=== PATIENT | male | born 1985 | race African-American/Black ===

== ENCOUNTER 2019-04-07 13:28 | Emergency (ER) | payer SELFPAY ==
[~2019-04-07] VITALS: Ht 175.3 cm; Wt 80.2 kg
[2019-04-07 13:30] VITALS: BP 120/53
[2019-04-07] MEDS ORDERED: DIPH,PERTUSS(ACELL),TET VAC/PF 0.5 ML IM-VACC ONE ×2 (13:48→14:00)
== END 2019-04-07 14:43 | disposition home or self-care (01) ==
LOC: ED 14:30
DX: S61.235A Puncture wound without foreign body of left ring finger without damage to nail, initial encounter (principal); F17.200 Nicotine dependence, unspecified, uncomplicated; X58.XXXA Exposure to other specified factors, initial encounter; Y93.89 Activity, other specified; Y92.69 Other specified industrial and construction area as the place of occurrence of the external cause; Y99.8 Other external cause status
CPT/HCPCS: 90471; 90715

== ENCOUNTER 2019-11-24 13:22 | Emergency (ER) | payer MEDICAID | END 2019-11-24 14:09 | LOC: ED 14:03 | DX: F41.9 Anxiety disorder, unspecified (principal); Z53.21 Procedure and treatment not carried out due to patient leaving prior to being seen by health care provider ==

== ENCOUNTER 2019-12-30 11:31 | Emergency (ER) | payer MEDICAID ==
[~2019-12-30] VITALS: Ht 175.3 cm; Wt 78.4 kg
[2019-12-30 11:43] VITALS: BP 115/67
[2019-12-30] MEDS ORDERED: LIDOCAINE-MPF 1%, 5ML ONE (11:55)
[2019-12-30] MEDS ORDERED: LIDOCAINE 1%, 10ML INFIL ONE (12:00)
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
--- NOTE | 2019-12-30 12:09 | NUR ---
XR DONE AT .
[2019-12-30] MEDS ORDERED: NEOSPORIN OINT. PKT 1 PACKET ONE ×2 (13:11)
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
[2019-12-30] MEDS ORDERED: IBUPROFEN 800 MG TABLET ONE (13:37)
--- NOTE | 2019-12-30 13:53 | NUR ---
BANDANGE AND ALUMINUM FINGER SPLINT APPLIED BY GLASS GRINDER. INSTRUCTED PT ON WOUND CARE.
--- NOTE | 2019-12-30 13:54 | NUR ---
D/C INSTRUCTIONS, MEDS & F/U APPT RV'WD WITH PT, HE VERBALIZES UNDERSTANDING. RX GIVEN X1. PT AMBULATED OUT OF ED WITH SIGNIFICANT OTHER WITHOUT DIFFICULTY.
[2019-12-30] MEDS ORDERED: IBUPROFEN 800 MG TABLET PO ONE (14:00)
== END 2019-12-30 13:54 | disposition home or self-care (01) ==
LOC: ED 12:29
DX: S61.411A Laceration without foreign body of right hand, initial encounter (principal); F17.200 Nicotine dependence, unspecified, uncomplicated; X58.XXXA Exposure to other specified factors, initial encounter; Y93.89 Activity, other specified; Y92.410 Unspecified street and highway as the place of occurrence of the external cause; Y99.8 Other external cause status
CPT/HCPCS: 12042; 73130; 99284; J3490

== ENCOUNTER 2020-01-08 16:56 | Emergency (ER) | payer MEDICAID ==
[~2020-01-08] VITALS: Ht 175.3 cm; Wt 81.7 kg
[2020-01-08 17:04] VITALS: BP 125/66
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
--- NOTE | 2020-01-08 17:11 | NUR ---
Patient/Caregiver given discharge instructions and they have confirmed that they understand the instructions. Patient ambulatory with steady gait.
== END 2020-01-08 17:24 | disposition home or self-care (01) ==
LOC: ED 17:15
DX: S61.411D Laceration without foreign body of right hand, subsequent encounter (principal); X58.XXXD Exposure to other specified factors, subsequent encounter
CPT/HCPCS: 99282

== ENCOUNTER 2020-06-14 14:19 | Emergency (ER) | payer OTHER, MEDICAID ==
[~2020-06-14] VITALS: Ht 175.3 cm; Wt 82.9 kg
[2020-06-14 14:28] VITALS: BP 114/60
--- NOTE | 2020-06-14 15:26 | NUR ---
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
[2020-06-14] MEDS ORDERED: KETOROLAC 30 MG/1 ML ONE (15:50)
[2020-06-14] MEDS ORDERED: ACETAMINOPHEN 500 MG TABLET ONE (15:50)
[2020-06-14] MEDS ORDERED: ACETAMINOPHEN 500 MG TABLET PO ONE (16:00)
[2020-06-14] MEDS ORDERED: KETOROLAC 30 MG/1 ML IM ONE (16:00)
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
--- NOTE | 2020-06-14 16:27 | NUR ---
pt medicated per emar, call light within reach
--- NOTE | 2020-06-14 17:12 | NUR ---
Patient/Caregiver given discharge instructions and they have confirmed that they understand the instructions. Patient ambulatory and d/c with crutches.
== END 2020-06-14 17:13 | disposition home or self-care (01) ==
LOC: ED 16:51
DX: S83.92XA Sprain of unspecified site of left knee, initial encounter (principal); F17.210 Nicotine dependence, cigarettes, uncomplicated; X58.XXXA Exposure to other specified factors, initial encounter; Y93.89 Activity, other specified; Y92.89 Other specified places as the place of occurrence of the external cause; Y99.8 Other external cause status
CPT/HCPCS: 29505; 73564; 96372; 99283; J1885; 99406